=== PATIENT | male | born 1960 | race Caucasian/White ===

== ENCOUNTER → 2018-12-11 | Outpatient (CLI) | payer OTHER, BC ==
[~2018-12-11] VITALS: Ht 175.3 cm; Wt 140.6 kg
[~2018-12-11] MED LIST: JANUMET XR 50-1 EAC1 PO; LIPITOR10 MG PO; LISINOPRIL5 MG PO; MELATONIN5 M1 PO; PAROXETINE HCL40 MG PO; PRILOSEC 20 MG20 MG PO; TRAMADOL 50 MG50 MG PO
--- NOTE | 2018-12-16 08:16 | P ---
[facility] [address] PROCEDURE REPORT Name: OMID CAPPS June MUNIZ Room #: REG [facility]#: [id number] Admission: 12/11/18 ������������������ Attend Phys: Henrry Deleon Discharge: ������������������ Date of : 60 Report #: [id number] THIS REPORT FOR: //name// CC: Henrry Colby MD DATE OF SERVICE: 12/11/2018 PROCEDURE PERFORMED: Colonoscopy with biopsies. HISTORY OF PRESENT ILLNESS: The patient is a 58-year-old male with a history of diarrhea for the last 5 months. At that time, no change in medications or antibiotics. No travel. He had stool studies x 2 and reportedly that were negative. He averages 3-4 loose stools per day. Denies any blood in his stools. Denies any significant abdominal pain. The patient has a significant history of sleep apnea. He is actually planning on gastric sleeve surgery in the future. No family history of colon cancer or inflammatory bowel disease. Plan is for colonoscopy. DESCRIPTION OF PROCEDURE: The risks and benefits of the procedure were explained to the patient and those risks including but not limited to bleeding, perforation and the risk of sedation. He understood these risks and gave informed consent. Sedation was given using propofol and ketamine per Anesthesia. Next, digital rectal exam was initially performed, which was normal. Next, using a standard Olympus colonoscope, the scope was placed in the patient's anus and advanced under direct vision to the cecum. The overall prep was good. The cecum and ileocecal valve were normal in appearance. The terminal ileum was intubated and normal in appearance. The ascending, transverse and descending colon were normal. Multiple scattered diverticula were noted in the sigmoid colon and no evidence of inflammation. In the rectum, there were two 3-4 mm sessile polyps. These were removed with cold forceps, otherwise normal. On retroflexion, small nonbleeding internal hemorrhoids were noted. Random biopsies of the colon were obtained today to rule out the possibility of microscopic colitis. The scope was then withdrawn and the procedure terminated. The patient tolerated the procedure well. IMPRESSION: 1. Sigmoid diverticulosis. 2. Two small rectal polyps. 3. Internal hemorrhoids. 4. Otherwise, normal colonoscopy. RECOMMENDATIONS: 1. Await biopsy results. [address] [address] PROCEDURE REPORT Name: OMID CAPPS Room #: REG [facility].#: [id number] Admission: 12/11/18 ������������������ Attend Phys: Henrry Deleon Discharge: ������������������ Date of : 60 Report #: [id number] 2. If polyps are hyperplastic, repeat colonoscopy in 10 years and if adenomatous polyp, repeat in 5 years. 3. We would recommend trial of probiotics at this time while awaiting biopsy results. Thank you for allowing me to participate in his care. ��������������������������������������������� <ELECTRONICALLY SIGNED> ���������������������������������������� By: Henrry Rodríguez MD ��������������������������������������������� 12/16/18 0816 [id number] Henrry Rodríguez MD /mimi
--- NOTE | 2018-12-16 14:06 | PATH ---
[facility] [address] [place] [address] PATHOLOGY RPT PROCEDURE Name: JEFRYOMID Watkins Room #: REG [facility] [place].#: [id number] ������������������ Admission: 12/11/18 ������������������ Date of : 60 Discharge: Report #: [id number] Path Case #: [id number] [facility] Accession Number: [id number] . 01 Material submitted: . PART A: RANDOM COLON BIOPSY R/O MICORSCOPIC COLITIS PART B: POLYP AT RECTUM X2 . 01 Clinical history: . Pre-OP DX: Diarrhea Post-OP DX: Rectal polyps, diarrhea, diverticulosis, internal hemorrhoids . 02 Diagnosis: A. Large intestinal mucosa, random colon rule out microscopic colitis, endoscopic biopsy: - Focal mild acute colitis. - Negative for microscopic colitis. - Negative for dysplasia or malignancy. . B. Polyp x2, rectum, endoscopic biopsy: - Hyperplastic polyp present within 2 fragments. - Negative for dysplasia. . (VIOLAV:danita; 12/12/2018) MBR/12/12/2018 . 02 Comment: Sections of the colonic mucosa designated "random colon" show focal cryptitis, and a moderately cellular lamina propria composed predominantly of lymphocytes and plasma cells and occasional eosinophils. Surface ulceration is not identified. There are no crypt abscesses, granulomas or viral inclusions. The process affects all the fragments with a similar intensity. Given the description, the differential diagnosis includes acute colitis of self-limited etiology, infectious etiology, drug or medication-induced colitis, bowel preparation, as well as a resolving episode of acute colitis. Please correlate with clinical as well as endoscopic findings. (IUV:lead pressman; 12/12/2018) . 02 Electronically signed: . Nataliya Lora MD, Pathologist NPI- [id number] . 01 Gross description: . A. Received in formalin labeled "Omid Capps Jr, random colon BX, rule out microscopic colitis," are multiple segments of thomas soft tissue measuring 1.5 x 0.5 x 0.1 cm in aggregate dimensions. [place] [address] PATHOLOGY RPT PROCEDURE Name: OMID CAPPS JR Room #: REG [facility]#: [id number] ������������������ Admission: 12/11/18 ������������������ Date of : 60 Discharge: Report #: [id number] Path Case #: [id number] filtered and entirely submitted in cassette A1. . B. Received in formalin labeled "Omid Capps Jr, polyp at rectum x2," are 4 segments of thomas soft tissue measuring 1.4 x 0.9 x 0.2 cm in aggregate dimensions and ranging from 0.3 to 0.4 cm in maximum dimension. The specimen is submitted entirely in cassette B1. (TSD; 12/11/2018) TOB/TOB . 02 Pathologist provided ICD-10: K52.9, K62.1 . 02 CPT . 592981, 147130 Specimen Comment: A courtesy copy of this report has been sent to Specimen Comment: [phone], . Specimen Comment: Report sent to / DR BAUGH Specimen Comment: A duplicate report has been generated due to demographic updates. Performed at: [address], [place] [id number] MD Cristi Lr MD Phone: [phone] Performed at: [address] [id number] MD Nataliya Lora MD Phone: [phone]
== END | disposition home or self-care (01) ==
LOC: GI 08:28
DX: K62.1 Rectal polyp (principal); K52.9 Noninfective gastroenteritis and colitis, unspecified; K57.30 Diverticulosis of large intestine without perforation or abscess without bleeding; K64.8 Other hemorrhoids; G47.33 Obstructive sleep apnea (adult) (pediatric); E11.9 Type 2 diabetes mellitus without complications; K21.9 Gastro-esophageal reflux disease without esophagitis; Z79.4 Long term (current) use of insulin; Z98.890 Other specified postprocedural states; Z85.828 Personal history of other malignant neoplasm of skin; Z79.899 Other long term (current) drug therapy; Z88.6 Allergy status to analgesic agent; Z87.442 Personal history of urinary calculi
CPT/HCPCS: 62110; 62900